=== PATIENT | male | born 1955 | race Caucasian/White ===

== ENCOUNTER 2016-10-05 15:07 | Emergency (ER) | payer MEDICAID, OTHER ==
[~2016-10-05] VITALS: Ht 172.7 cm; Wt 77.1 kg
[~2016-10-05 15:07] MED LIST: ALBU-136 IH; LEVO0.173 PO
--- NOTE | 2016-10-05 15:13 | NUR ---
Patient BIBA BLS, transferred to bed 4. RN evaluating patient at bedside.
[2016-10-05] MEDS ORDERED: NACL 0.9% 1,000 ML IV SCH (15:16)
[2016-10-05 15:19] VITALS: BP 121/90
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
[2016-10-05 15:53] LABS: BASOPHILS # (AUTO) 0.4 K/uL (0.00-0.22); BASOPHILS % (AUTO) 2.5 % (0.0-2.0); EOSINOPHILS # (AUTO) 0.7 K/uL (0-0.4); EOSINOPHILS % (AUTO) 5.2 % (0.0-4.0); HEMATOCRIT 48.7 % (36-52); HEMOGLOBIN 15.4 g/dL (12.0-18.0); LYMPHOCYTES # (AUTO) 3.5 K/uL (2.0-11.5); LYMPHOCYTES % (AUTO) 24.5 % (20.5-51.1); MEAN CORPUSCULAR HEMOGLOBIN 29 pg (27-31); MEAN CORPUSCULAR HGB CONC 32 g/dL (33-37); MEAN CORPUSCULAR VOLUME 92 fL (80-94); MONOCYTES # (AUTO) 1.2 K/uL (0.8-1.0); MONOCYTES % (AUTO) 8.5 % (1.7-9.3); NEUTROPHILS # (AUTO) 8.4 K/uL (1.8-7.7); NEUTROPHILS % (AUTO) 59.3 % (42.2-75.2); PLATELET COUNT (AUTO) 331 K/uL (140-450); RED BLOOD CELL COUNT(AUTO) 5.29 MIL/uL (4.20-6.10); RED CELL DISTRIBUTION WIDTH 13.5 % (11.6-13.7); WHITE BLOOD COUNT (AUTO) 14.2 K/uL (4.8-10.8)
[2016-10-05 15:57] LABS: ANION GAP 12.6 (8-16); CALCIUM 8.2 mg/dL (8.5-10.1); CARBON DIOXIDE 29.7 mmol/L (21-32); CREATININE 1.5 mg/dL (0.6-1.3); POTASSIUM 4.3 mmol/L (3.5-5.1)
[2016-10-05 16:03] LABS: ALBUMIN 2.8 g/dL (3.4-5.0); TOTAL BILIRUBIN 1.2 mg/dL (0.0-1.0); TOTAL PROTEIN, SERUM 6.3 g/dL (6.4-8.2)
[2016-10-05] MEDS ORDERED: CLINDAMYCIN 600 MG in DEXTROSE 5% 50 ML IV ONE (17:25)
[2016-10-05] MEDS ORDERED: CLINDAMYCIN 600 MG/4 ML VIAL ONE (17:33)
[2016-10-05 18:00] LABS: APPEARANCE,URINE CLEAR (CLEAR); BILIRUBIN,URINE 1+ (NEGATIVE); BLOOD, URINE NEGATIVE (NEGATIVE); COLOR,URINE YELLOW (YELLOW); LEUKOCYTE ESTERASE ,URINE NEGATIVE (NEGATIVE); NITRITE, URINE NEGATIVE (NEGATIVE); PROTEIN,URINE NEGATIVE (NEGATIVE); UGLUCOSE NEGATIVE (NEGATIVE)
[2016-10-05 18:15] LABS: ICTOTEST NEGATIVE (NEGATIVE)
[2016-10-05 18:16] VITALS: BP 131/80
--- NOTE | 2016-10-05 18:16 | NUR ---
Patient discharged with v/s stable. Written and verbal after care instructions given and explained. Patient alert, oriented and verbalized understanding of instructions. Ambulatory with steady gait. All questions addressed prior to discharge. ID band removed. Patient advised to follow up with PMD. Rx of KEFLEX 500MG & TYLENOL 325MG TAB given. Patient educated on indication of medication including possible reaction and side effects. Opportunity to ask questions provided and answered.
--- NOTE | 2016-10-05 18:16 | NUR ---
Patient given written and verbal discharge instructions and verbalizes understanding. Patient is awake, alert and oriented. Ambulatory with steady gait. Given list of available shelters in surrounding areas as well as bus pass. Addendum: 10/05/16 at 1830 by [facility] BUS PASS PROVIDED PER PT REQUEST FOR TRANSPORTATION.
[2016-10-05 18:17] LABS: BACTERIA,URINE None Seen /HPF (None Seen); RBC,URINE NONE SEEN /HPF (0-5); SQUAMOUS EPITHELIAL CELL,UR 0-3 (FEW) /LPF (0-3 (FEW)); WBC,URINE NONE SEEN /HPF (0-5)
== END 2016-10-05 18:16 | disposition home or self-care (01) ==
LOC: MED 15:07
DX: L03.113 Cellulitis of right upper limb (principal); B95.8 Unspecified staphylococcus as the cause of diseases classified elsewhere; J45.909 Unspecified asthma, uncomplicated; E11.9 Type 2 diabetes mellitus without complications; Z88.0 Allergy status to penicillin
CPT/HCPCS: 36415; 80053; 81001; 82150; 83690; 85025; 85651; 96361; 96365; 99284; J3490; J7030; J7060

== ENCOUNTER 2016-10-05 18:45 | Emergency (ER) | payer OTHER ==
[~2016-10-05] VITALS: Ht 172.7 cm; Wt 72.6 kg
[2016-10-05 19:08] VITALS: BP 148/87
--- NOTE | 2016-10-05 19:43 | NUR ---
Patient to OF2 via wheelchair per tech.
--- NOTE | 2016-10-05 20:08 | NUR ---
PT bib self/homeless C/O SOB. PT STATES HE WAS D/C FROM ER AND BECAME SOB. HX DM, CHF, HYPOTHYROIDISM.PT DENIES N/V/D; SKIN IS INTACT, FLUSHED/WARM/DRY; AAOX4, PERRL, WITH EVEN AND STEADY GAIT; LUNGS CLEAR BL, WITH A DRY COUGH NOTED, BREATHING UNLABORED; HR EVEN AND REGULAR, BL PERIPHERAL PULSES PRESENT; BS ACTIVE X4, NO TENDERNESS TO PALPATION. PT DENIES ANY FEVER, CP AT THIS TIME; PT STATES 2/10 PAIN AT THIS TIME; VSS; PATIENT POSITIONED FOR COMFORT; HOB ELEVATED; BEDRAILS UP X2; BED DOWN.
--- NOTE | 2016-10-05 20:22 | NUR ---
Pupils equal and reactive to light bilaterally. No facial droop noted. No smile deficit noted. Speech normal for patient. Patient is alert and oriented to person, place, time and event. Bilateral hand transmission system operator equal. Bilateral foot push equal.
--- NOTE | 2016-10-05 20:29 | NUR ---
Patient going to XRAY via wheelchair per tech.
--- NOTE | 2016-10-05 20:35 | NUR ---
Patient back from XRAY via wheelchair per tech.
[2016-10-05 20:36] LABS: AMPHETAMINE, URINE POS. ng/ml (NEG <=1000); BARBITURATE, URINE NEG. ng/ml (NEG <=200); BENZODIAZEPINE, URINE NEG. ng/mL (NEG <=200); CANNABINOID, URINE NEG. ng/mL (NEG <=50); COCAINE, URINE NEG. ng/mL (NEG <=300); OPIATE, URINE NEG. ng/mL (NEG <=2000); PHENCYCLIDINE SCREEN,URINE NEG. ng/mL (NEG <=25)
--- NOTE | 2016-10-05 20:38 | NUR ---
Dr. Lyons evaluating patient.
--- NOTE | 2016-10-05 21:00 | NUR ---
Per Lab, troponin is 0.410. I made this known to Dr. Lyons.
--- NOTE | 2016-10-05 21:00 | NUR ---
Patient appears to be resting comfortably in bed. Vital Signs within normal limits. Respirations even and unlabored.
--- NOTE | 2016-10-05 21:06 | NUR ---
Dr. Lyons re evaluating patient.
[2016-10-05] MEDS ORDERED: ASPIRIN 325 MG TAB PO ONE (21:10)
--- NOTE | 2016-10-05 21:14 | NUR ---
Patient to bed 05.
--- NOTE | 2016-10-05 21:19 | NUR ---
Pt report given to KALINA VILLEGAS. Transfer of care at this time.
[2016-10-05 21:20] VITALS: BP 159/110
--- NOTE | 2016-10-05 21:36 | NUR ---
REPORT CALLED TO LABOR DELIVERY SPECIALIST/CATHY AT [facility]
== END 2016-10-05 21:30 | disposition short-term general hospital (02) ==
LOC: MED 18:45
DX: I21.3 ST elevation (STEMI) myocardial infarction of unspecified site (principal); I50.22 Chronic systolic (congestive) heart failure; I11.0 Hypertensive heart disease with heart failure; R09.02 Hypoxemia; J44.9 Chronic obstructive pulmonary disease, unspecified; F15.10 Other stimulant abuse, uncomplicated; Z88.0 Allergy status to penicillin
CPT/HCPCS: 36415; 71010; 80305; 83735; 83880; 84484; 93005; 99285

== ENCOUNTER 2016-11-14 01:55 | Inpatient (IN) | payer OTHER ==
[~2016-11-14] VITALS: Ht 175.3 cm; Wt 82.6 kg
[2016-11-14 02:06] VITALS: BP 153/83
[2016-11-14] MEDS ORDERED: NACL 0.9% 500 ML IV SCH (02:10)
[2016-11-14] MEDS ORDERED: KETOROLAC 30 MG/ML VIAL IVP ONE (02:15)
[2016-11-14 02:23] LABS: HEMATOCRIT 51.2 % (36-52); HEMOGLOBIN 16.1 g/dL (12.0-18.0); MEAN CORPUSCULAR HEMOGLOBIN 29 pg (27-31); MEAN CORPUSCULAR HGB CONC 31 g/dL (33-37); MEAN CORPUSCULAR VOLUME 92 fL (80-94); PLATELET COUNT (AUTO) 329 K/uL (140-450); RED BLOOD CELL COUNT(AUTO) 5.55 MIL/uL (4.20-6.10); RED CELL DISTRIBUTION WIDTH 15.8 % (11.6-13.7)
[2016-11-14 02:37] LABS: WHITE BLOOD COUNT (AUTO) 16.1 K/uL (4.8-10.8)
[2016-11-14 02:38] LABS: BAND % (MANUAL) 3 % (0-8); EOSINOPHILS % (MANUAL) 2 % (0-4); LYMPHOCYTES % (MANUAL) 8 % (20-46); MONOCYTES % (MANUAL) 6 % (5-12); NEUTROPHILS % (MANUAL) 81 (43-65)
[2016-11-14] MEDS ORDERED: DILTIAZEM 25 MG/5 ML VIAL IVP ONE (02:40)
[2016-11-14 02:44] LABS: ANION GAP 14.2 (8-16); CALCIUM 8.4 mg/dL (8.5-10.1); CARBON DIOXIDE 28.2 mmol/L (21-32); CREATININE 1.3 mg/dL (0.7-1.3); INR 1.1 (0.8-1.2); PARTIAL THROMBOPLASTIN TIME 22.1 secs (22-35.6); POTASSIUM 4.4 mmol/L (3.5-5.1); PROTHROMBIN TIME 11.6 secs (10.8-13.4)
[2016-11-14 02:45] LABS: ALBUMIN 3.3 g/dL (3.4-5.0); TOTAL BILIRUBIN 1.2 mg/dL (0.0-1.0)
[2016-11-14 02:46] LABS: LACTIC ACID 1.6 mmol/L (0.4-2.0)
[2016-11-14 02:56] LABS: APPEARANCE,URINE CLEAR (CLEAR); BILIRUBIN,URINE NEGATIVE (NEGATIVE); BLOOD, URINE NEGATIVE (NEGATIVE); COLOR,URINE YELLOW (YELLOW); LEUKOCYTE ESTERASE ,URINE NEGATIVE (NEGATIVE); NITRITE, URINE NEGATIVE (NEGATIVE); PROTEIN,URINE 1+ (NEGATIVE); UGLUCOSE NEGATIVE (NEGATIVE); UROBILINOGEN,URINE 0.2 EU/dL (0.2 - 1)
[2016-11-14] MEDS ORDERED: ENOXAPARIN 80 MG/0.8 ML SYR SUBQ ONE (03:05)
[2016-11-14] MEDS ORDERED: ASPIRIN 81 MG TAB.CHEW PO ONE (03:05)
[2016-11-14 03:09] LABS: BACTERIA,URINE None Seen /HPF (None Seen); MUCUS,URINE 3+ /LPF (None Seen); RBC,URINE 0-5 (RARE) /HPF (0-5); SQUAMOUS EPITHELIAL CELL,UR 0-3 (FEW) /LPF (0-3 (FEW)); URINE AMORPHOUS URATE 2+ /HPF (None Seen); WBC,URINE 0-5 (RARE) /HPF (0-5)
[2016-11-14] MEDS ORDERED: CLOPIDOGREL 75 MG TAB PO ONE (03:15)
[2016-11-14] MEDS ORDERED: NON-FORMULARY ITEM (Albuterol Sulfate Hfa* (Proair Hfa*) 2 PUFF) IH PRN (03:25)
[2016-11-14] MEDS ORDERED: ONDANSETRON 4 MG/2 ML VIAL IVP PRN (03:25)
[2016-11-14] MEDS ORDERED: MORPHINE SULFATE 4 MG/ML SYR IVP PRN (03:25)
[2016-11-14] MEDS ORDERED: DILTIAZEM 25 MG/5 ML VIAL IVP PRN (03:25)
[2016-11-14] MEDS ORDERED: ACETAMINOPHEN 325 MG TAB PO PRN (03:25)
[2016-11-14] MEDS ORDERED: MORPHINE SULFATE 2 MG/ML SYR IVP PRN (03:25)
[2016-11-14 05:04] VITALS: BP 140/100
[2016-11-14 08:00] VITALS: BP 153/95
[2016-11-14] MEDS ORDERED: PROBIOTIC SCREEN 1 EA MISC MC PRN (08:25)
[2016-11-14] MEDS: LEVOTHYROXINE 0.075 MG TAB PO SCH (08:57)
[2016-11-14] MEDS: LEVOTHYROXINE 0.1 MG TAB PO SCH (08:57)
[2016-11-14] MEDS: METOPROLOL 25 MG TAB PO SCH ×2 (08:58→22:00)
[2016-11-14] MEDS ORDERED: LOVENOX 1MG/KG Q12H SUBQ SCH (09:00)
[2016-11-14] MEDS ORDERED: LEVOTHYROXINE 0.1 MG TAB PO SCH (09:00)
[2016-11-14] MEDS ORDERED: FUROSEMIDE 100 MG/10 ML VIAL IV SCH (09:45)
[2016-11-14] MEDS ORDERED: DOCUSATE SODIUM 250 MG GELCAP PO SCH (09:45)
[2016-11-14] MEDS: LEVOFLOXACIN 750 MG/D5W PREMIX 150 ML IV SCH (10:09)
[2016-11-14 12:00] VITALS: BP 165/75
[2016-11-14 13:20] LABS: AMPHETAMINE, URINE POS. ng/ml (NEG <=1000); BARBITURATE, URINE NEG. ng/ml (NEG <=200); BENZODIAZEPINE, URINE NEG. ng/mL (NEG <=200); CANNABINOID, URINE NEG. ng/mL (NEG <=50); COCAINE, URINE NEG. ng/mL (NEG <=300); OPIATE, URINE POS. ng/mL (NEG <=2000); PHENCYCLIDINE SCREEN,URINE NEG. ng/mL (NEG <=25)
[2016-11-14] MEDS: ENOXAPARIN 80 MG/0.8 ML SYR SUBQ SCH (15:21)
[2016-11-14 16:00] VITALS: BP 138/71
[2016-11-14 20:00] VITALS: BP 118/65
[2016-11-14] MEDS: DOCUSATE SODIUM 250 MG GELCAP PO SCH (22:00)
[2016-11-15] VITALS: BP 124/69
[2016-11-15 01:33] LABS: CREATINE KINASE MB 6.3 ng/mL (0-3.6)
[2016-11-15] MEDS: ENOXAPARIN 80 MG/0.8 ML SYR SUBQ SCH ×2 (03:32→16:34)
[2016-11-15 04:00] VITALS: BP 105/48
[2016-11-15 06:21] LABS: BASOPHILS # (AUTO) 0.6 K/uL (0.00-0.22); BASOPHILS % (AUTO) 4.3 % (0.0-2.0); EOSINOPHILS # (AUTO) 0.5 K/uL (0-0.4); EOSINOPHILS % (AUTO) 3.7 % (0.0-4.0); HEMATOCRIT 49.7 % (36-52); HEMOGLOBIN 15.8 g/dL (12.0-18.0); LYMPHOCYTES # (AUTO) 3.1 K/uL (2.0-11.5); LYMPHOCYTES % (AUTO) 21.4 % (20.5-51.1); MEAN CORPUSCULAR HEMOGLOBIN 29 pg (27-31); MEAN CORPUSCULAR HGB CONC 32 g/dL (33-37); MEAN CORPUSCULAR VOLUME 92 fL (80-94); MONOCYTES % (AUTO) 6.8 % (1.7-9.3); NEUTROPHILS # (AUTO) 9.2 K/uL (1.8-7.7); NEUTROPHILS % (AUTO) 63.8 % (42.2-75.2); PLATELET COUNT (AUTO) 308 K/uL (140-450); RED CELL DISTRIBUTION WIDTH 16.1 % (11.6-13.7); WHITE BLOOD COUNT (AUTO) 14.4 K/uL (4.8-10.8)
[2016-11-15 06:40] LABS: ALBUMIN 2.9 g/dL (3.4-5.0); ANION GAP 12.9 (8-16); CALCIUM 8.4 mg/dL (8.5-10.1); CARBON DIOXIDE 29.2 mmol/L (21-32); CREATININE 1.3 mg/dL (0.7-1.3); POTASSIUM 5.1 mmol/L (3.5-5.1); TOTAL BILIRUBIN 1.9 mg/dL (0.0-1.0); TOTAL PROTEIN, SERUM 6.4 g/dL (6.4-8.2)
[2016-11-15 08:00] VITALS: BP 140/100
[2016-11-15] MEDS: ASPIRIN 81 MG TAB.CHEW PO SCH (08:36)
[2016-11-15] MEDS: FUROSEMIDE 40 MG TAB PO SCH (08:37)
[2016-11-15] MEDS: DOCUSATE SODIUM 250 MG GELCAP PO SCH ×2 (08:37→20:51)
[2016-11-15] MEDS: METOPROLOL 25 MG TAB PO SCH ×2 (08:38→20:51)
[2016-11-15] MEDS: LEVOTHYROXINE 0.075 MG TAB PO SCH (08:39)
[2016-11-15] MEDS: LEVOTHYROXINE 0.1 MG TAB PO SCH (08:39)
[2016-11-15] MEDS ORDERED: FUROSEMIDE 100 MG/10 ML VIAL IV SCH (09:00)
[2016-11-15] MEDS ORDERED: FUROSEMIDE 40 MG/4 ML VIAL IVP SCH (09:00)
[2016-11-15 12:00] VITALS: BP 144/80
[2016-11-15] MEDS: LEVOFLOXACIN 750 MG/D5W PREMIX 150 ML IV SCH (12:56)
[2016-11-15] MEDS ORDERED: LACTOBACILLUS RHAMNOSUS GG 1 EACH CAP PO SCH (14:00)
[2016-11-15 16:00] VITALS: BP 131/73
[2016-11-15 20:00] VITALS: BP 124/89
[2016-11-15] MEDS: APIXABAN 2.5 MG TAB PO SCH (20:52)
[2016-11-16] VITALS: BP 137/96
[2016-11-16 04:00] VITALS: BP 164/100
[2016-11-16 05:28] LABS: BASOPHILS # (AUTO) 0.5 K/uL (0.00-0.22); BASOPHILS % (AUTO) 3.4 % (0.0-2.0); EOSINOPHILS # (AUTO) 0.6 K/uL (0-0.4); EOSINOPHILS % (AUTO) 3.8 % (0.0-4.0); HEMATOCRIT 50.5 % (36-52); HEMOGLOBIN 15.8 g/dL (12.0-18.0); LYMPHOCYTES # (AUTO) 3.8 K/uL (2.0-11.5); LYMPHOCYTES % (AUTO) 24.4 % (20.5-51.1); MEAN CORPUSCULAR HEMOGLOBIN 29 pg (27-31); MEAN CORPUSCULAR HGB CONC 31 g/dL (33-37); MEAN CORPUSCULAR VOLUME 93 fL (80-94); MONOCYTES # (AUTO) 1.6 K/uL (0.8-1.0); MONOCYTES % (AUTO) 10.4 % (1.7-9.3); PLATELET COUNT (AUTO) 329 K/uL (140-450); RED BLOOD CELL COUNT(AUTO) 5.44 MIL/uL (4.20-6.10)
[2016-11-16 06:34] LABS: CALCIUM 8.5 mg/dL (8.5-10.1); CARBON DIOXIDE 29.6 mmol/L (21-32); CREATININE 1.1 mg/dL (0.7-1.3); POTASSIUM 4.6 mmol/L (3.5-5.1)
[2016-11-16 06:59] LABS: WHITE BLOOD COUNT (AUTO) 15.5 K/uL (4.8-10.8)
[2016-11-16 08:00] VITALS: BP 138/80
[2016-11-16] MEDS: LOSARTAN 25 MG TAB PO SCH (09:29)
[2016-11-16] MEDS: DOCUSATE SODIUM 250 MG GELCAP PO SCH ×2 (09:29→20:45)
[2016-11-16] MEDS: FUROSEMIDE 40 MG TAB PO SCH (09:29)
[2016-11-16] MEDS: LACTOBACILLUS RHAMNOSUS GG 1 EACH CAP PO SCH (09:29)
[2016-11-16] MEDS: LEVOTHYROXINE 0.075 MG TAB PO SCH (09:30)
[2016-11-16] MEDS: LEVOTHYROXINE 0.1 MG TAB PO SCH (09:30)
[2016-11-16] MEDS: METOPROLOL 25 MG TAB PO SCH ×2 (09:30→20:46)
[2016-11-16] MEDS: ASPIRIN 81 MG TAB.CHEW PO SCH (09:30)
[2016-11-16] MEDS: LEVOFLOXACIN 750 MG/D5W PREMIX 150 ML IV SCH (09:36)
[2016-11-16] MEDS: APIXABAN 2.5 MG TAB PO SCH ×2 (09:52→20:52)
[2016-11-16] MEDS: ALBUTEROL 0.083% 2.5 MG/3 ML NEBU INH PRN (10:22)
[2016-11-16 12:00] VITALS: BP 131/74
[2016-11-16 16:00] VITALS: BP 130/87
[2016-11-16 20:00] VITALS: BP 140/86
[2016-11-16] MEDS: CLINDAMYCIN 600 MG in DEXTROSE 5% 50 ML IV SCH (20:46)
[2016-11-17] VITALS: BP_SYST 110; BP_SYST 121; BP_DIAS 70; BP_DIAS 80
[2016-11-17 04:00] VITALS: BP 145/81
[2016-11-17] MEDS: CLINDAMYCIN 600 MG in DEXTROSE 5% 50 ML IV SCH ×2 (04:47→13:32)
[2016-11-17 06:09] LABS: BASOPHILS # (AUTO) 0.4 K/uL (0.00-0.22); BASOPHILS % (AUTO) 3.3 % (0.0-2.0); EOSINOPHILS # (AUTO) 0.4 K/uL (0-0.4); EOSINOPHILS % (AUTO) 3.4 % (0.0-4.0); HEMATOCRIT 48.8 % (36-52); HEMOGLOBIN 15.6 g/dL (12.0-18.0); LYMPHOCYTES # (AUTO) 2.6 K/uL (2.0-11.5); LYMPHOCYTES % (AUTO) 20.3 % (20.5-51.1); MEAN CORPUSCULAR HEMOGLOBIN 29 pg (27-31); MEAN CORPUSCULAR HGB CONC 32 g/dL (33-37); MEAN CORPUSCULAR VOLUME 92 fL (80-94); MONOCYTES # (AUTO) 0.8 K/uL (0.8-1.0); MONOCYTES % (AUTO) 6.6 % (1.7-9.3); NEUTROPHILS # (AUTO) 8.6 K/uL (1.8-7.7); NEUTROPHILS % (AUTO) 66.4 % (42.2-75.2); PLATELET COUNT (AUTO) 292 K/uL (140-450); RED CELL DISTRIBUTION WIDTH 15.9 % (11.6-13.7); WHITE BLOOD COUNT (AUTO) 12.8 K/uL (4.8-10.8)
[2016-11-17 06:23] LABS: ANION GAP 10.7 (8-16); CALCIUM 8.3 mg/dL (8.5-10.1); CARBON DIOXIDE 27.6 mmol/L (21-32); POTASSIUM 4.3 mmol/L (3.5-5.1)
[2016-11-17 08:00] VITALS: BP 120/81
[2016-11-17] MEDS: ALBUTEROL 0.083% 2.5 MG/3 ML NEBU INH PRN ×2 (08:49→14:03)
[2016-11-17] MEDS: LEVOTHYROXINE 0.075 MG TAB PO SCH (10:05)
[2016-11-17] MEDS: LEVOTHYROXINE 0.1 MG TAB PO SCH (10:06)
[2016-11-17] MEDS: METOPROLOL 25 MG TAB PO SCH (10:06)
[2016-11-17] MEDS: LACTOBACILLUS RHAMNOSUS GG 1 EACH CAP PO SCH (10:07)
[2016-11-17] MEDS: LOSARTAN 25 MG TAB PO SCH (10:07)
[2016-11-17] MEDS: DOCUSATE SODIUM 250 MG GELCAP PO SCH (10:07)
[2016-11-17] MEDS: FUROSEMIDE 40 MG TAB PO SCH (10:07)
[2016-11-17] MEDS: APIXABAN 2.5 MG TAB PO SCH (10:08)
[2016-11-17] MEDS: ASPIRIN 81 MG TAB.CHEW PO SCH (10:09)
[2016-11-17] MEDS: LEVOFLOXACIN 750 MG/D5W PREMIX 150 ML IV SCH (10:11)
[2016-11-17 12:00] VITALS: BP 140/66
[2016-11-17] MEDS ORDERED: ACET-1182 PO (14:36)
[2016-11-17] MEDS ORDERED: LOSA25TA1 PO (14:36)
[2016-11-17] MEDS ORDERED: METO25TA PO (14:36)
[2016-11-17] MEDS ORDERED: APIX2.5 PO (14:36)
[2016-11-17] MEDS ORDERED: FURO40TA9 PO (14:36)
[2016-11-17] MEDS ORDERED: LEVO750T2 PO (14:39)
[2016-11-17 16:00] VITALS: BP 136/53
[2016-11-18] MEDS ORDERED: LEVOFLOXACIN 750 MG/D5W PREMIX 150 ML IV SCH (10:00)
== END 2016-11-17 17:29 | disposition home or self-care (01) | DRG 140 ==
LOC: MED 01:55 → MIC 03:25 → MTU 11-16 07:06
PROVIDERS: ADMIT Hospitalist; ATTEND Hospitalist
DX: J44.0 Chronic obstructive pulmonary disease with (acute) lower respiratory infection (principal); I21.4 Non-ST elevation (NSTEMI) myocardial infarction; I50.43 Acute on chronic combined systolic (congestive) and diastolic (congestive) heart failure; J18.9 Pneumonia, unspecified organism; I11.0 Hypertensive heart disease with heart failure; I42.0 Dilated cardiomyopathy; J44.1 Chronic obstructive pulmonary disease with (acute) exacerbation; F19.10 Other psychoactive substance abuse, uncomplicated; N28.9 Disorder of kidney and ureter, unspecified; R09.02 Hypoxemia; E78.5 Hyperlipidemia, unspecified; E11.9 Type 2 diabetes mellitus without complications; I48.91 Unspecified atrial fibrillation; E03.9 Hypothyroidism, unspecified; F15.10 Other stimulant abuse, uncomplicated; K40.90 Unilateral inguinal hernia, without obstruction or gangrene, not specified as recurrent; Z79.899 Other long term (current) drug therapy; Z88.0 Allergy status to penicillin; Z59.0 Homelessness; Z87.891 Personal history of nicotine dependence; Z91.19 Patient's noncompliance with other medical treatment and regimen; Z71.51 Drug abuse counseling and surveillance of drug abuser
CPT/HCPCS: 36415; 71010; 80048; 80053; 80162; 80305; 81001; 82550; 82553; 82948; 83605; 83735; 83880; 84484; 85025; 85610; 85730; 87040; 87081; 93005; 94640; 96361; 96372; 96374; 96375; 99291; J1650; J1885; J1940; J1956; J2270; J3490; J7030; J7060; J7613; Q0092